=== PATIENT | female | born 1975 ===

== ENCOUNTER 2018-08-05 09:26 | Day surgery (SDC) | payer OTHER ==
--- NOTE | 2018-08-04 20:41 | PDGENHP ---
History and Physical - Chief Complaint LEFT HIP PAIN - History of Present Illness Left~Femoroacetabular impingement (AMNA) Cam type,~with~resultant labral tear~( Has~currently~asymptomatic~AMNA~on the R) HISTORY OF PRESENT ILLNESS: Cookieis a 43 y.o.~very~~active female~who I have had the pleasure to consult on today. 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 ~ Cookieenjoys dance, crossfit, mountainbiking, road biking. Susana's~left~hip pain started August of 2016, with~marked~recalled trauma or injury (felt searing pain doing a turn in a contemporary dance presentation) , and with~no~previous complaints. Cookiedoes not have~a known history of hip dysplasia. Presentation today is of~anterolateral~left~hip pain. ~The hip~does not~wake her ~at night and does~click and catch on her. Sitting~can be uncomfortable~for her. ~Cookiedoes not~report suffering from lower back pain episodes. Cookiehas~participated in physical therapy and has~tried other conservative measures including hip injections~including 1 steroid (beginning~of~February) and 2 PRP (03/08, 03/15) done in [place], [place].~She~has~received sufficient symptomatic improvement potentially - now~bike~riding without issue, but still "tight" with yoga and deep squats. She is about 85% back to normal in terms of pain/ability to perform her normal~activities. Cookiehas~not been taking any medications. Cookiedenies issues with the right~hip. ~ Cookieunderstands that she~has a hip and pelvis problem which should be researched and wishes to get a better understanding of her~hip status, followed by an establishment of a treatment strategy, hoping she~would be able to get back to her~well being active life. History: Past medical history:~~ Patient~has lupus Relevant familial history:~None which is relevant~ Past surgical history:~ None Cookiehas never received general anesthesia. I have reviewed, verified and agree with the past medical, surgical, family and social history. Current Medications:~has a current medication list which includes the following prescription(s): hydroxychloroquine. ALLERGIES:~is allergic to bee pollen and venom-honey bee. Objective: Physical Examination: Cookieis 5~feet 4~inches tall and weighs 120~Lbs. Cookieis AAO x3; she~is well-nourished, in NAD. Skin is warm and dry. ~Breathing is non-labored. ~CV with RRR by pulse. Abdomen is soft, NTND. Currently,~she~walks with a normal~gait. Trendelenburg sign is~negative~and proprioception is normal,~both~sides. She~presents with mild~signs of joint laxity. Beightons Score:~2 She~is fit looking. ~~ Lower spine examination is~negative~for sciatic or femoral nerve irritation with ~negative~SLR &~femoral stretch tests. Range of motion of the spine is normal~ for flexion, extension, and rotations, with no~associated pain. Strength, Sensation and pulses are~normal -~bilaterally Ankles and knees exams are~normal~and no~mal-alignment is evident. She~has no leg length discrepancy. Thigh circumference is~symmetric~with no evidence for muscle atrophy~on both~ sides. Hip ROM (degrees): FL ER At 90~hip FL IR At 90~hip FL AB AD EX IR Neutral hip ER Neutral hip R 100 55 35 45 5 10 50 40 L 95 50 15 45 5 10 50 40 Specific hip and pelvis tests: Impingement Test ANGELICA Roll Add. Longus R Negative + Negative Negative L +++ Negative Negative Negative Glut. Med ITB Posterior Imp R Negative 5/5 strength Negative 5/5 strength Negative L Negative 5/5 strength Negative 5/5 strength Negative Squeeze test measured~normal Bony Symphysis pubis is~pain free~to touch while concentric activity of the rectus abdominis, does~not~produce pain at its insertion. Ilio Psos specific tests are~negative for pain during cycling for~both hips~and remarkable for nothing HF has~no pain~both hips. Anterior left~capsule tenderness on the left Greater trochanteric burse is~pain free~on both hips. Piriformis tests: FAIR is~negative,~with no~local signs of neuritis related to sciatic nerve. SIJs examination is~normal~with normal~ANGELICA in relation and local tenderness. Hamstrings tests are~negative~both hips. On a daily basis, the following percentages reflectLibby's overall total pain: Deep hip:~100% Imaging: Radiology studies which I have personally reviewed, analyzed and measured are below: XR: AP of the hip and pelvis: Performed in a~good~technique Coccyx to pubic symphysis distance~2.3~cm. 0~degrees caudal [place] Lines are~preserved. No~Pathological signs are seen in the Symphysis Pubis. No~Pathological signs are seen at the Ischial tuberosity. ~ Specific measurements show: NSA~ LCE Sourcil~Angle Sharp's angle Lat. Cam Lat. Pincer C.Over~sign Head~Coverage % ATDmm R 135 28 5 42 N N N 82 + L 139 28 8 43 N N N 86 + Pos. wall sign ISS NAD ~~Dysplasia Comments R Negative Negative 17~mm Negative L Negative Negative 17.1~mm Negative Sclerosis Sup. Lat. OA Cysts Joint Space-WBZ Joint Space-Medial R Negative Negative Negative 4.9~mm 4.5~mm L Negative Negative Negative 4.3~mm 3.7~mm X Table lateral: Anterior cam lesion is~seen~on both hips. Alpha Angle: ~ Right~62~dergrees Left~64~degrees MRI from [facility] on 01/22/17 - shows a small lateral labral tear with good cartilage preservation and no subchondral edema. Impression and plan:Chuck Garyis a 43 y.o.~active female~suffering from symptomatic left~hip pain due to Left~Femoroacetabular impingement (AMNA) Cam type,~with~resultant labral tear~causing significant disability to her~and altering her~sport and life activities. Physical examination, imaging, and~her~story correspond with the diagnosis mentioned above. I explained that femoroacetabular impingement (AMNA) arises due to a bony or soft tissue conflict between the femur (ball) and acetabulum (socket) caused by an abnormality in the shape of the hip joint. Over time, repetitive impingement can result in damage to the labrum and adjacent surface cartilage within the socket, ultimately giving rise to progressive osteoarthritis of the hip. I explained that although a labral tear can be a source of pain, it is rarely the root of the problem and typically occurs secondary to an underlying abnormality in the shape and mechanics of the hip joint. ~ I reviewed conservative treatment options for AMNA including activity modification to avoid positions of impingement, physical therapy, non-steroidal anti-inflammatory medications, and various injections (corticosteroid and PRP) aimed at reducing inflammation in the hip joint or/and preventing dynamic impingement. PRP injections may promote healing and reduce symptoms in certain cases but it will not repair chronically damaged tissue. Although these measures may help to buy time and reduce current level of symptoms, they are not a definitive solution to the problem given the underlying abnormality in the shape of the hip joint. Patients who have failed conservative management and continue to experience symptoms are candidates for hip arthroscopy, a minimally invasive surgery that can definitively address the underlying problem. Hip arthroscopy typically includes treating the labrum with either repair or reconstruction of the torn labrum; as well as addressing the underlying abnormalities by restoring the normal shape to the hip joint. ~If the cartilage is damaged a Microfracture surgical procedure may also be necessary to help stimulate the growth of fibrocartilage. ~If a patient requires a labral reconstruction or a Microfracture, the initial rehabilitation from the surgery may take longer, but the tank terminal gauger results are typically favorable. I explained that although a labral tear can be a source of pain, it is rarely the root of the problem and typically occurs secondary to an underlying abnormality in the shape and mechanics of the hip joint. Conservative management with rest, activity modification, and PRP injections may promote healing and reduce symptoms in certain cases. When these measures are inadequate , hip arthroscopy is typically performed to repair or reconstruct the torn labrum and address the underlying abnormality in the shape of the hip joint. ~ Hip arthroscopy typically includes treating the labrum with either debridement, repair, or reconstruction of the torn labrum; as well as addressing the underlying abnormalities by restoring the normal shape to the hip joint. ~If the cartilage is damaged a Microfracture procedure may also be necessary to help stimulate the growth of fibrocartilage. ~If a patient requires a labral reconstruction or a Microfracture the initial rehabilitation from the surgery may take longer, but the penitentiary results are typically favorable. Susana~will review the info presented. Cookieis going to think about her~options and get back to us. We recommend she allow the PRP injections to wear off so she can objectively see how much her hip is bothering her before she undergoes surgery. Cookieis happy with this plan. I have also supplied~her~with handouts, outlining the expected surgical treatment and rehab involved. I wish~Cookieall the best, ~~ Lisette Burgos MD History Information - Allergies/Home Medication List Allergies/Adverse Reactions: bee pollen Allergy (Verified 07/23/18 15:13) Anaphylaxis Home Medications: Herbals/Supplements -Info Only DAILY 07/23/18 [Last Taken Unknown] Plaquenil 200 mg (*) DAILY 07/23/18 [Last Taken Unknown] I have personally reviewed and updated: medical history - Social History Smoking Status: Never smoked Review of Systems Review of Systems: Physical Exam Physical Exam:
[2018-08-05] MEDS ORDERED: ceFAZolin 2 GM/DEXTROSE 100 ML IV ONE (09:31)
[2018-08-05] MEDS ORDERED: PREGABALIN 150 MG CAP PO ONE (09:31)
[2018-08-05] MEDS ORDERED: ACETAMINOPHEN 500 MG TAB PO ONE (09:31)
[2018-08-05] MEDS ORDERED: EPINEPHrine 1 MG/ML INJ ONE (09:34)
[2018-08-05] MEDS ORDERED: BUPIVACAINE 0.25% 30 ML SDV ONE (09:34)
[2018-08-05] MEDS ORDERED: MIDAZOLAM 2 MG/2 ML VIAL ONE (11:37)
[2018-08-05] MEDS ORDERED: PREGABALIN 150 MG CAP ONE (11:39)
[2018-08-05] MEDS ORDERED: ACETAMINOPHEN 500 MG TAB ONE (11:40)
[2018-08-05] MEDS ORDERED: MIDAZOLAM 2 MG/2 ML VIAL IVP ONE (11:49)
--- NOTE | 2018-08-05 11:50 | PDANEPAE ---
ANE Past Medical History - Cardiovascular History Hx Hypertension: No Hx Arrhythmias: No Hx Chest Pain: No Hx Coronary Artery / Peripheral Vascular Disease: No Hx CHF / Valvular Disease: No Hx Palpitations: No - Pulmonary History Hx COPD: No Hx Asthma/Reactive Airway Disease: No Hx Recent Upper Respiratory Infection: No Hx Oxygen in Use at Home: No Hx Sleep Apnea: No Sleep Apnea Screening Result - Last Documented: Negative Pulmonary History Comment: CHILDHOOD ASTHMA - Neurologic History Hx Cerebrovascular Accident: No Hx Seizures: No Hx Dementia: No - Endocrine History Hx Diabetes: No Hypothyroid: No Hyperthyroid: No Obesity: no - Renal History Hx Renal Disorders: No - Liver History Hx Hepatic Disorders: No - Neurological & Psychiatric Hx Hx Neurological and Psychiatric Disorders: No - Cancer History Hx Cancer: No - Congenital Disorder History Hx Congenital Disorders: No - GI History Hx Gastrointestinal Disorders: No - Other Health History Other Health History: LT LABRAL - Chronic Pain History Chronic Pain: Yes (LT HIP) - Surgical History Prior Surgeries: NEG ANE Review of Systems Review of Systems: - Exercise capacity METS (RN): 6 METS ANE Patient History - Allergies Allergies/Adverse Reactions: bee pollen Allergy (Verified 07/23/18 15:13) Anaphylaxis - Home Medications Home Medications: Herbals/Supplements -Info Only DAILY 07/23/18 [Last Taken Unknown] Plaquenil 200 mg (*) DAILY 07/23/18 [Last Taken Unknown] - NPO status NPO Since - Liquids (Date): 08/05/18 NPO Since - Liquids (Time): 07:30 NPO Since - Solids (Date): 08/04/18 NPO Since - Solids (Time): 20:00 - Smoking Hx Smoking Status: Never smoked - Family Anes Hx Family Hx Anesthesia Complications: NEG ANE Labs/Vital Signs - Labs Result Diagrams: 08/05/18 10:20 - Vital Signs Blood Pressure: 119/64 Heart Rate: 45 Respiratory Rate: 97 Height: 162.56 cm Weight: 54.431 kg ANE Physical Exam - Airway Neck exam: FROM Mallampati Score: Class 1 Mouth exam: normal dental/mouth exam - Pulmonary Pulmonary: no respiratory distress - Cardiovascular Cardiovascular: regular rate and rhythym - ASA Status ASA Status: I ANE Anesthesia Plan Anesthesia Plan: general endotracheal anesthesia
[2018-08-05] MEDS ORDERED: LIDOCAINE 2% 5 ML SDV ONE (11:54)
[2018-08-05] MEDS ORDERED: ROCURONIUM 100 MG/10 ML VIAL ONE (11:54)
[2018-08-05] MEDS ORDERED: fentaNYL 250 MCG/5 ML INJ ONE (11:54)
[2018-08-05] MEDS ORDERED: PROPOFOL/EMULSION 500 MG/50 ML BOTTLE IV ONE (11:54)
[2018-08-05] MEDS ORDERED: DEXAMETHASONE 4 MG/ML VIAL ONE (12:23)
[2018-08-05] MEDS ORDERED: GLYCOPYRROLATE 0.2 MG/1 ML VIAL ONE ×3 (12:23→16:16)
[2018-08-05] MEDS ORDERED: ONDANSETRON 4 MG/2 ML VIAL ONE ×2 (12:23→19:02)
[2018-08-05] MEDS ORDERED: ROCURONIUM 50 MG/5 ML VIAL ONE (14:05)
--- NOTE | 2018-08-05 16:35 | POSTOPPROG ---
Post Op Note Date of Operation: 08/05/18 Surgeon: Dajuan Goode Rope Tow Operator: Dr. Regan Anesthesia: GET(General Endotracheal) Pre-op Diagnosis: LEFT AMNA Post-op Diagnosis: LEFT AMNA Procedure: Left Hip Arthroscopy Inf/Abcess present in the surg proc area at time of surgery?: No
[2018-08-05] MEDS ORDERED: oxyCODONE IR 5 MG TAB PO PRN (16:43)
[2018-08-05] MEDS ORDERED: PROMETHAZINE HCL 25 MG/ML INJ IVP PRN (16:43)
[2018-08-05] MEDS ORDERED: ONDANSETRON 4 MG/2 ML VIAL IVP PRN (16:43)
[2018-08-05] MEDS ORDERED: NALOXONE HCL 0.4 MG/ML INJ IVP PRN (16:43)
--- NOTE | 2018-08-05 16:45 | POSTANESTH ---
Post Anesthetic Evaluation Cardiovascular Status: Normal, Stable Respiratory Status: Normal, Stable Level of Consciousness/Mental Status: Can Participate in Eval Pain Control: Adequate, Prn Tx Ordered Nausea/Vomiting Control: Adequate, Prn Tx Ordered Complications Possibly Related to Anesthesia: None Noted
[2018-08-05] MEDS ORDERED: fentaNYL 100 MCG/2 ML INJ ONE (17:04)
[2018-08-05] MEDS: fentaNYL 100 MCG/2 ML INJ IVP PRN ×2 (17:05→17:15)
[2018-08-05] MEDS ORDERED: DIAZEPAM 5 MG/ML 1 ML SYR ONE (17:25)
[2018-08-05] MEDS: DIAZEPAM 5 MG/ML 1 ML SYR IVP PRN ×2 (17:29→17:42)
[2018-08-05] MEDS ORDERED: oxyCODONE IR 5 MG TAB ONE (18:20)
[2018-08-05 19:28] VITALS: BP 112/60
== END 2018-08-05 19:28 | disposition home or self-care (01) ==
LOC: FSGY 09:26
PROVIDERS: ATTEND Orthopaedic Surgery Sports Medicine
PROC: 0SQB4ZZ Repair Left Hip Joint, Percutaneous Endoscopic Approach (ICD-10-PCS; principal; 2018-08-05 11:00)
DX: M25.852 Other specified joint disorders, left hip (principal); M24.152 Other articular cartilage disorders, left hip
CPT/HCPCS: C1713; J0171; J0690; J1100; J2250; J2405; J2704; J3010; J3360